=== PATIENT | female | born 1950 | race Caucasian/White ===

== ENCOUNTER 2018-10-21 12:08 | Emergency (ER) | payer MEDICARE ==
[~2018-10-21] VITALS: Ht 167.6 cm; Wt 74.0 kg
--- NOTE | 2018-10-21 12:12 | NUR ---
NA X1
[2018-10-21 14:03] LABS: BASOPHILS # (AUTO) 0.02 x10^3/uL (0-0.1); BASOPHILS % (AUTO) 0 % (0-1); EOSINOPHILS # (AUTO) 0.09 x10^3/uL (0-0.4); EOSINOPHILS % (AUTO) 2 % (1-7); LYMPHOCYTES # (AUTO) 1.22 x10^3/uL (1-3.4); LYMPHOCYTES % (AUTO) 25 % (22-44); MD NO; MEAN CORPUSCULAR HEMOGLOBIN 30.3 pg (27.0-34.8); MEAN CORPUSCULAR HGB CONC 32.8 g/dL (32.4-35.8); MEAN CORPUSCULAR VOLUME 92.2 fL (80-100); MEAN PLATELET VOLUME 9.1 fL (7.4-10.4); MONOCYTES # (AUTO) 0.35 x10^3/uL (0.2-0.8); MONOCYTES % (AUTO) 7 % (2-9); NEUTROPHILS # (AUTO) 3.23 x10^3/uL (1.8-6.8); NEUTROPHILS % (AUTO) 66 % (42-75); PLATELET COUNT 211 x10^3/uL (130-400); RED BLOOD COUNT 4.49 x10^6/uL (3.82-5.3); RED CELL DISTRIBUTION WIDTH 13.4 % (9.6-15.2)
[2018-10-21 14:12] LABS: ALANINE AMINOTRANSFERASE 22 U/L (12-78); ALBUMIN 4.2 g/dL (3.4-5.0); ANION GAP 7 mmol/L (5-15); CALCIUM 9.4 mg/dL (8.5-10.1); CHLORIDE 108 mmol/L (98-107); CREATININE 0.88 mg/dL (0.55-1.02)
--- NOTE | 2018-10-21 14:12 | NUR ---
PT TO ROOM AT THIS TIME.
[2018-10-21 14:16] LABS: ALKALINE PHOSPHATASE 67 U/L (45-117); BILIRUBIN,TOTAL 0.5 mg/dL (0.2-1.0); TOTAL PROTEIN 7.7 g/dL (6.4-8.2); TROPONIN I < 0.015 ng/mL (0.000-0.045)
--- NOTE | 2018-10-21 15:15 | NUR ---
SLIGHT MURRY, FEELS DIZZY/UNBALANCED AND THAT HER HEAD IS NOT CLEAR
[2018-10-21 15:16] VITALS: BP 141/75
--- NOTE | 2018-10-21 15:22 | NUR ---
uob to bathroom without assistance. requesting social insurance analyst for resources for housing.
--- NOTE | 2018-10-21 15:29 | NUR ---
FULLERETTE SPOKE BRIEFLY WITH PT. PT GIVEN ADDRESS AND PHONE NUMBER FOR [facility] AND TO BE OFFERED A [employer]AXI VOUCHER TO SAME
== END 2018-10-21 15:48 | disposition home or self-care (01) ==
LOC: ED 15:28
DX: R55 Syncope and collapse (principal); R42 Dizziness and giddiness; I10 Essential (primary) hypertension; E11.9 Type 2 diabetes mellitus without complications; Z87.891 Personal history of nicotine dependence
CPT/HCPCS: 36415; 70551; 71046; 80053; 84484; 85025; 93005; 99284